=== PATIENT | male | born 1995 | race Caucasian/White ===

== ENCOUNTER 2017-10-11 19:12 | Emergency (ER) | payer OTHER ==
[2017-10-11] MEDS: LIDOCAINE WITH 8.4% SOD BICARB 3 ML DISP.SYRIN. INJ (19:45)
== END 2017-10-11 20:57 | disposition home or self-care (01) ==
LOC: ER 19:12
DX: S61.211A Laceration without foreign body of left index finger without damage to nail, initial encounter (principal); W26.0XXA Contact with knife, initial encounter; Y93.89 Activity, other specified; Y99.8 Other external cause status; Y92.89 Other specified places as the place of occurrence of the external cause
CPT/HCPCS: 12001; 99283

== ENCOUNTER 2017-10-20 14:39 | Emergency (ER) | payer OTHER | END 2017-10-20 15:27 | disposition home or self-care (01) | LOC: ER 14:39 | DX: S61.211D Laceration without foreign body of left index finger without damage to nail, subsequent encounter (principal); X58.XXXD Exposure to other specified factors, subsequent encounter | CPT/HCPCS: 99281; 99282 ==